=== PATIENT | male | born 1960 | race Caucasian/White ===

== ENCOUNTER 2021-09-16 13:59 | Emergency (ER) | payer BC ==
[2021-09-16] MEDS ORDERED: Sodium Chloride 0.9% 10 ML Syringe FLUSH PRN (14:11)
[2021-09-16] MEDS ORDERED: Sodium Chloride 0.9% 10 ML SDV IV PRN (14:11)
[2021-09-16] MEDS: Diltiazem 50 MG/10 ML SDV IVPUSH ONE ×2 (14:47→15:00)
--- NOTE | 2021-09-16 14:49 | EDM.PDOC ---
ED HPI GENERAL MEDICAL PROBLEM - General Chief Complaint: Cardiovascular Problem Stated Complaint: SOB RAPID HEART BEAT Time Seen by Provider: 09/16/21 14:29 - History of Present Illness INITIAL COMMENTS - FREE TEXT/NARRATIVE: 61-year-old male presents the emergency room with shortness of breath. Said that shortness of breath for the last 2-1/2 weeks. He has not had any associated fever minimal if any cough. One evening last week he had an episode of chest pain that lasted about an hour and then went away other than this he is not had any associated chest pain with this. He has not had any GI symptoms. Patient has never really experienced this in the past but he gets easily winded when trying to do things. He is enjoyed pretty good health thus far he is not on any routine medications. - Related Data Allergies Allergy/AdvReac Type Severity Reaction Status Date / Time No Known Allergies Allergy Verified 09/16/21 14:18 Home Meds: Home Meds Apixaban [Eliquis] 5 mg PO BID #60 tablet 09/16/21 [Rx] Diltiazem [Cardizem CD] 120 mg PO DAILY #30 cap.er 09/16/21 [Rx] Past Medical History - Past Health History Medical/Surgical History: Denies Medical/Surgical History Endocrine/Metabolic History: Reports: Obesity/BMI 30+ Social & Family History - Tobacco Use Tobacco Use Status *Q: Never Tobacco User - Caffeine Use Caffeine Use: Reports: None - Recreational Drug Use Recreational Drug Use: No ED ROS GENERAL - Review of Systems Review Of Systems: See Below Constitutional: Reports: No Symptoms HEENT: Reports: No Symptoms Respiratory: Reports: Shortness of Breath (Dyspnea on exertion), Cough (Minimal). Denies: Wheezing, Pleuritic Chest Pain, Hemoptysis Cardiovascular: Reports: Chest Pain (One episode last week otherwise unremarkabl e) Endocrine: Reports: No Symptoms GI/Abdominal: Reports: No Symptoms : Reports: No Symptoms Musculoskeletal: Reports: No Symptoms Skin: Reports: No Symptoms Neurological: Reports: No Symptoms ED EXAM, GENERAL - Physical Exam Exam: See Below Exam Limited By: No Limitations General Appearance: Alert, No Apparent Distress Head: Atraumatic, Normocephalic Neck: Normal Inspection, Supple, Non-Tender, Full Range of Motion Respiratory/Chest: No Respiratory Distress, Lungs Clear, Normal Breath Sounds, No Accessory Muscle Use, Chest Non-Tender Cardiovascular: Normal Peripheral Pulses, Regular Rate, Rhythm, No Edema, No Gallop, No JVD, No Murmur, No Rub GI/Abdominal: Normal Bowel Sounds, Soft, Non-Tender, No Organomegaly, No Distention, No Abnormal Bruit, No Mass Back Exam: Normal Inspection. No: CVA Tenderness (L), CVA Tenderness (R) Extremities: Normal Inspection, Normal Range of Motion, Non-Tender Neurological: Alert, Oriented, Normal Cognition Psychiatric: Normal Affect, Normal Mood #1 Interpretation EKG Date: 09/16/21 Rhythm: A-Fib Rate (Beats/Min): 134 (Range 125-166) [place]: Normal P-Wave: Absent QRS: Normal ST-T: Other (Normal repolarization abnormality) QT: Normal Comparison: NA - No Prior EKG EKG Interpretation Comments: Abnormal EKG Course - Vital Signs Last Recorded V/S: Last Vital Signs Temp 36.4 C 09/16/21 14:13 Pulse 143 H 09/16/21 14:13 Resp 24 H 09/16/21 14:13 BP 134/87 09/16/21 14:13 Pulse Ox 92 L 09/16/21 14:13 - Orders/Labs/Meds Orders: Active Orders 24 hr Category Date Time Status Cardiac Monitoring [RC] STAT Care 09/16/21 14:12 Active Communication Order [RC] STAT Care 09/16/21 14:12 Active Peripheral IV Care [RC] . DIRECTED Care 09/16/21 14:12 Active Sodium Chloride 0.9% [Normal Saline] Med 09/16/21 14:11 Active 10 ml IV ASDIRECTED PRN Sodium Chloride 0.9% [Saline Flush] Med 09/16/21 14:11 Active 10 ml FLUSH ASDIRECTED PRN Peripheral IV Insertion Adult [OM.PC] Stat Oth 09/16/21 14:12 Ordered Medication Orders Sodium Chloride (Sodium Chloride 0.9% 10 Ml Syringe) 10 ml FLUSH ASDIRECTED PRN PRN Reason: Keep Vein Open Last Admin: 09/16/21 14:47 Dose: 10 ml Documented by: JUAN CARLOS Sodium Chloride (Sodium Chloride 0.9% 10 Ml Sdv) 10 ml IV ASDIRECTED PRN PRN Reason: Keep Vein Open Last Admin: 09/16/21 14:47 Dose: 10 ml Documented by: JUAN CARLOS Labs: Laboratory Tests 09/16/21 09/16/21 09/16/21 Range/Units 14:05 14:05 14:05 WBC 10.60 H (4.23-9.07) K/mm3 RBC 5.03 (4.63-6.08) M/mm3 Hgb 14.6 (13.7-17.5) gm/dl Hct 43.3 (40.1-51.0) % MCV 86.1 (79.0-92.2) fl MCH 29.0 (25.7-32.2) pg MCHC 33.7 (32.2-35.5) g/dl RDW Std Deviation 40.0 (35.1-43.9) fL Plt Count 326 D (163-337) K/mm3 MPV 10.4 (9.4-12.3) fl Neut % (Auto) 72.4 H (34.0-67.9) % Lymph % (Auto) 13.9 L (21.8-53.1) % [place] % (Auto) 11.7 (5.3-12.2) % Eos % (Auto) 0.7 L (0.8-7.0) Baso % (Auto) 0.5 (0.1-1.2) % Neut # (Auto) 7.69 H (1.78-5.38) K/mm3 Lymph # (Auto) 1.47 (1.32-3.57) K/mm3 [place] # (Auto) 1.24 H (0.30-0.82) K/mm3 Eos # (Auto) 0.07 (0.04-0.54) K/mm3 Baso # (Auto) 0.05 (0.01-0.08) K/mm3 Manual Slide Review PT 12.6 H (9.7-12.0) SECONDS INR 1.14 APTT 30.2 (21.7-31.4) SECONDS D-Dimer, Quantitative (0.19-0.50) mg/L Sodium 135 L (136-145) mEq/L Potassium 4.3 (3.5-5.1) mEq/L Chloride 100 (98-107) mEq/L Carbon Dioxide 22 (21-32) mEq/L Anion Gap 17.3 H (5-15) BUN 21 H (7-18) mg/dL Creatinine 1.2 (0.7-1.3) mg/dL Est Cr Clr Drug Dosing 70.95 mL/min Estimated GFR (MDRD) > 60 (>60) mL/min BUN/Creatinine Ratio 17.5 (14-18) Glucose 109 H (70-99) mg/dL Calcium 9.1 (8.5-10.1) mg/dL Magnesium 2.4 (1.8-2.4) mg/dL Total Bilirubin 0.8 (0.2-1.0) mg/dL AST 50 H (15-37) U/L ALT 49 (16-63) U/L Alkaline Phosphatase 68 (46-116) U/L Troponin I < 0.017 (0.00-0.056) ng/mL C-Reactive Protein (<1.0) mg/dL Total Protein 7.8 (6.4-8.2) g/dl Albumin 2.9 L (3.4-5.0) g/dl Globulin 4.9 gm/dL Albumin/Globulin Ratio 0.6 L (1-2) TSH 3rd Generation 1.029 (0.358-3.74) uIU/mL SARS-CoV-2 RNA (RONALD) (NEGATIVE) 09/16/21 09/16/21 09/16/21 Range/Units 14:05 14:30 17:13 WBC (4.23-9.07) K/mm3 RBC (4.63-6.08) M/mm3 Hgb (13.7-17.5) gm/dl Hct (40.1-51.0) % MCV (79.0-92.2) fl MCH (25.7-32.2) pg MCHC (32.2-35.5) g/dl RDW Std Deviation (35.1-43.9) fL Plt Count (163-337) K/mm3 MPV (9.4-12.3) fl Neut % (Auto) (34.0-67.9) % Lymph % (Auto) (21.8-53.1) % [place] % (Auto) (5.3-12.2) % Eos % (Auto) (0.8-7.0) Baso % (Auto) (0.1-1.2) % Neut # (Auto) (1.78-5.38) K/mm3 Lymph # (Auto) (1.32-3.57) K/mm3 [place] # (Auto) (0.30-0.82) K/mm3 Eos # (Auto) (0.04-0.54) K/mm3 Baso # (Auto) (0.01-0.08) K/mm3 Manual Slide Review PT (9.7-12.0) SECONDS INR APTT (21.7-31.4) SECONDS D-Dimer, Quantitative 1.29 H (0.19-0.50) mg/L Sodium (136-145) mEq/L Potassium (3.5-5.1) mEq/L Chloride (98-107) mEq/L Carbon Dioxide (21-32) mEq/L Anion Gap (5-15) BUN (7-18) mg/dL Creatinine (0.7-1.3) mg/dL Est Cr Clr Drug Dosing mL/min Estimated GFR (MDRD) (>60) mL/min BUN/Creatinine Ratio (14-18) Glucose (70-99) mg/dL Calcium (8.5-10.1) mg/dL Magnesium (1.8-2.4) mg/dL Total Bilirubin (0.2-1.0) mg/dL AST (15-37) U/L ALT (16-63) U/L Alkaline Phosphatase (46-116) U/L Troponin I (0.00-0.056) ng/mL C-Reactive Protein 18.7 H* (<1.0) mg/dL Total Protein (6.4-8.2) g/dl Albumin (3.4-5.0) g/dl Globulin gm/dL Albumin/Globulin Ratio (1-2) TSH 3rd Generation (0.358-3.74) uIU/mL SARS-CoV-2 RNA (RONALD) Positive H (NEGATIVE) Meds: Medications Generic Name Dose Route Start Last Admin Trade Name Freq PRN Reason Stop Dose Admin Sodium Chloride 10 ml 09/16/21 14:11 09/16/21 14:47 Sodium Chloride 0.9% 10 Ml Syringe FLUSH 10 ml ASDIRECTED PRN Administration Keep Vein Open Sodium Chloride 10 ml 09/16/21 14:11 09/16/21 14:47 Sodium Chloride 0.9% 10 Ml Sdv IV 10 ml ASDIRECTED PRN Administration Keep Vein Open Discontinued Medications Generic Name Dose Route Start Last Admin Trade Name Ren PRN Reason Stop Dose Admin Diltiazem HCl 20 mg 09/16/21 14:40 09/16/21 15:00 Diltiazem 50 Mg/10 Ml Sdv IVPUSH 09/16/21 14:41 10 mg ONETIME ONE Administration Diltiazem HCl 30 mg 09/16/21 15:28 09/16/21 15:50 Diltiazem Ir 30 Mg Tab PO 09/16/21 15:29 30 mg ONETIME ONE Administration Diltiazem HCl 120 mg 09/16/21 19:43 Diltiazem 120 Mg Cap.Cd PO 09/16/21 19:44 ONETIME ONE Iopamidol 100 ml 09/16/21 18:16 09/16/21 18:22 Iopamidol 612 Mg/Ml 100 Ml Bottle IVPUSH 09/16/21 18:17 100 ml ONETIME ONE Administration Sodium Chloride 10 ml 09/16/21 18:16 09/16/21 18:22 Sodium Chloride 0.9% 10 Ml Syringe FLUSH 09/16/21 18:17 10 ml ONETIME ONE Administration - Re-Assessments/Exams Free Text/Narrative Re-Assessment/Exam: 09/16/21 17:27 The patient demonstrated a elevation of his D-dimer at 1.29 discussed this with the patient we proceeded to CTA. After doing this the patient's troponin came back positive we will order a C-reactive protein. 09/16/21 19:34 Patient C-reactive protein came back at 18. Unfortunately we do not know when the onset of his Covid was. The Covid could have started before the atrial fibrillation. He is not having any other symptoms his shortness of breath though has been going on for 2-1/2 weeks and improved with rate reduction. He is not a candidate for monoclonal antibody therapy because of his onset of symptoms being potentially 20 days out. Fortunately the patient got better with rate reduction. Patient's case discussed with Dr. Falk pole shaver at [facility] in [place] and he agrees with putting the patient on Cardizem CD 120 mg daily start him on Eliquis. His office will call the patient and schedule an appointment. Discussed medications and instructions for use with the patient I will forward the prescriptions to the [place] [facility] in [place]. Departure - Departure Time of Disposition: 19:39 Disposition: Home, Self-Care Clinical Impression: New onset atrial fibrillation, COVID-19 Prescriptions: Diltiazem [Cardizem CD] 120 mg PO DAILY #30 cap.er Apixaban [Eliquis] 5 mg PO BID #60 tablet Instructions: COVID-19 Frequently Asked Questions Referrals: PCP,None [Primary Care Provider] - Forms: ED Department Discharge Additional Instructions: Return to the emergency room with any questions problems or worsening symptoms. Cardiology from [facility] in [place] should call you to schedule a follow- up in the very near future. You have been started on 2 medications for your atrial fibrillation the first 1 is Eliquis. This is a blood thinner you take 1 twice daily indefinitely. This can cause bleeding problems however decreases your risk of stroke significantly. The second medication is diltiazem 120 mg CD. This 1 is taken once daily your first dose was given this evening here in the emergency room. This is to control your heart rate. Your Covid test was positive. It is unclear when your onset date was current recommendations suggest social isolation for 10 days after the onset of symptoms or you are absolutely symptom-free for 4 days without the aid of medication. Is absolutely unclear when you came down with Covid. Sepsis Event Note (ED) - Evaluation Sepsis Screening Result: No Definite Risk - Focused Exam Vital Signs: Vital Signs Temp Pulse Resp BP Pulse Ox 09/16/21 14:13 36.4 C 143 H 24 H 134/87 92 L - My Orders Last 24 Hours: My Active Orders 09/16/21 14:11 Sodium Chloride 0.9% [Normal Saline] 10 ml IV ASDIRECTED PRN Sodium Chloride 0.9% [Saline Flush] 10 ml FLUSH ASDIRECTED PRN 09/16/21 14:12 Cardiac Monitoring [RC] STAT Communication Order [RC] STAT Peripheral IV Care [RC] . DIRECTED Peripheral IV Insertion Adult [OM.PC] Stat - Assessment/Plan Last 24 Hours: My Active Orders 09/16/21 14:11 Sodium Chloride 0.9% [Normal Saline] 10 ml IV ASDIRECTED PRN Sodium Chloride 0.9% [Saline Flush] 10 ml FLUSH ASDIRECTED PRN 09/16/21 14:12 Cardiac Monitoring [RC] STAT Communication Order [RC] STAT Peripheral IV Care [RC] . DIRECTED Peripheral IV Insertion Adult [OM.PC] Stat
--- NOTE | 2021-09-16 15:04 | CR ---
Chest: Frontal view of the chest was obtained. Comparison: No prior chest imaging is available. Slight areas of increased density are seen within both lung bases. Mild area of increased density is seen within the right upper lung. Heart size and mediastinum are within normal limits. Degenerative change is noted within the right shoulder and right acromioclavicular joint. Lesser degenerative change is seen within the left shoulder and left acromioclavicular joint. Impression: 1. Slight increased density within both lung bases as well as right upper lung. Findings are suspicious for possible areas of pneumonia. Please exclude any symptoms of COVID-19 etiology. 2. Other findings believed to be incidental as described above. Diagnostic code #3
[2021-09-16] MEDS ORDERED: Diltiazem IR 30 MG Tab PO ONE (15:28)
[2021-09-16] MEDS ORDERED: Iopamidol 612 MG/ML 100 ML Bottle IVPUSH ONE (18:16)
[2021-09-16] MEDS ORDERED: Sodium Chloride 0.9% 10 ML Syringe FLUSH ONE (18:16)
--- NOTE | 2021-09-16 18:32 | CT ---
CT chest Technique: Multiple axial sections through the chest were obtained. Intravenous contrast was utilized. Study has been performed as a pulmonary angiogram protocol. Comparison: No prior chest CT is available, chest x-ray performed earlier on the same day is available (2:46 PM). Findings: Pulmonary arteries are well opacified. No filling defects are seen to indicate pulmonary embolism. Thoracic aorta shows mild atherosclerotic calcification no aneurysm being seen. Small lymph nodes are seen within the mediastinum which are felt to be within normal limits. No pericardial thickening is seen. Heart size is normal in size. Visualized upper abdominal structures show nothing acute. Lung window settings were reviewed which show scattered parenchymal densities throughout both sides of the chest. No pleural effusions are seen. Bone window settings were reviewed which show mild degenerative change within the spine with scattered disc space narrowing and endplate spurring. No acute osseous finding is seen. Impression: 1. No findings of pulmonary embolism. 2. Diffuse parenchymal change scattered throughout both lungs compatible with COVID-19 pneumonia. Diagnostic code #3
[2021-09-16] MEDS ORDERED: Diltiazem 120 MG Cap.CD PO ONE (19:43)
[2021-09-16 19:58] VITALS: BP 130/85; PULSE 120
== END 2021-09-16 20:20 | disposition home or self-care (01) ==
LOC: JD.ED 13:59
DX: U07.1 COVID-19 (principal); I48.91 Unspecified atrial fibrillation; E66.9 Obesity, unspecified; Z68.41 Body mass index [BMI] 40.0-44.9, adult; Z79.01 Long term (current) use of anticoagulants
CPT/HCPCS: 36415; 71045; 71275; 80053; 83735; 84443; 84484; 85025; 85379; 85610; 85730; 86140; 87635; 93005; 96374; 99285; A9270; J3490; Q9967; 99284; U0002

== ENCOUNTER 2022-01-29 20:58 | Emergency (ER) | payer BC ==
[2022-01-29 21:14] VITALS: BP 163/125; PULSE 97
== END 2022-01-29 22:59 | disposition home or self-care (01) ==
LOC: JD.ED 20:58
DX: S42.255A Nondisplaced fracture of greater tuberosity of left humerus, initial encounter for closed fracture (principal); E66.9 Obesity, unspecified; Z68.41 Body mass index [BMI] 40.0-44.9, adult; W00.0XXA Fall on same level due to ice and snow, initial encounter
CPT/HCPCS: 73030-26-LT; 73030-LT; 99283